=== PATIENT | male | born 1985 | race Caucasian/White ===

== ENCOUNTER 2017-05-12 20:52 | Emergency (ER) | payer OTHER ==
[~2017-05-12] VITALS: Ht 165.1 cm; Wt 61.0 kg
[2017-05-12] MEDS ORDERED: KETOROLAC 30 MG/1 ML IM ONE (21:30)
[2017-05-12] MEDS ORDERED: PLEASE ENTER ALLERGIES MC SCH ×2 (21:30)
[2017-05-12] MEDS ORDERED: ONDANSETRON ODT 4 MG PO ONE (21:30)
[2017-05-12 21:35] LABS: ASPARTATE AMINO TRANSFERASE 13 U/L (15-37); BLOOD UREA NITROGEN 19 mg/dL (7-18)
[2017-05-12 21:35] LABS: PATH.CAST-FLAG NOT PRESENT; SPERM-FLAG NOT PRESENT; SRC-FLAG NOT PRESENT; XTAL-FLAG NOT PRESENT; YLC-FLAG NOT PRESENT
[2017-05-12 22:38] VITALS: BP 115/70
[2017-05-12] MEDS ORDERED: KETOROLAC 30 MG/1 ML ONE (22:39)
[2017-05-12] MEDS ORDERED: ONDANSETRON ODT 4 MG ONE (22:39)
[2017-05-13] MEDS ORDERED: ONDANSETRON ODT 4 MG ONE (01:35)
== END 2017-05-12 22:57 | disposition home or self-care (01) ==
LOC: ED 22:13
DX: N20.2 Calculus of kidney with calculus of ureter (principal); N23 Unspecified renal colic
CPT/HCPCS: 36415; 74176; 80053; 81001; 83690; 85025; 96372; 99285; J1885